=== PATIENT | male | born 1940 | race African-American/Black ===

== ENCOUNTER 2019-02-12 08:33 | Inpatient (IN) ==
[2019-02-12] MEDS ORDERED: SODIUM CHLORIDE 0.9% 2,400 ML IV ONE (09:06)
[2019-02-12] MEDS ORDERED: SODIUM CHLORIDE 0.9% 1,000 ML IV STA (09:06)
[2019-02-12 09:30] LABS: ABG Base Excess -0.1 MMOL/L (-2.5-2.5); ABG HCO3 24.4 MMOL/L (20-26); ABG PCO2 62.1 MM HG (35-48); ABG PH 7.273 (7.35-7.45); ABG TCO2 25.3 MMOL/L (23-27); Allen Test Positive
[2019-02-12 09:45] LABS: Basophils % 0.4 % (0.0-0.8); Eosinophils % 0.3 % (0.00-10.9); Hematocrit 44.5 VOL% (42.0-52.0); Hemoglobin 13.9 GM/DL (14.0-18.0); Immature Granulocytes % 0.6 %; Immature Granulocytes Absolute 0.05 #; Lymphocytes # 0.5 10*3/uL (1.4-4.0); Lymphocytes % 6.2 % (21.2-54.2); Mean Corpuscular HGB Conc 31.2 GM/DL (32-36); Mean Corpuscular Volume 96.7 FL (87-102); Mean Platelet Volume 9.4 FL (9.6-12.0); Monocytes % 3.8 % (1.7-12.7); Neutrophils % 88.7 % (38.7-73.9); Platelet Count 240 T/CUMM (130-400); Red Cell Distribution Width 14.5 % (9.3-17.3); White Blood Count 7.9 T/CUMM (4-12)
[2019-02-12 09:49] LABS: Apearance,Urine CLEAR (Clear); Bacteria,Urine Occasional /HPF (Few); Bilirubin,Urine Negative (Negative); Blood, Urine Negative (Negative); Glucose,Urine (UA) Negative (Negative); Ketones,Urine Negative (Negative); Mucus,Urine Occasional /LPF (Occasional); Nitrite,Urine Negative (Negative); Protein,Urine Negative; RBC,Urine 3 /HPF (0-4); Urine Color Yellow (Yellow); Urine Specific Gravity 1.011 (1.001-1.035); Urine Urobilinogen < 2.0 EU/DL (0.2-1.0); WBC,Urine <1 /HPF (0-6)
[2019-02-12 09:53] LABS: PT Patient Result 10.4 SECS
[2019-02-12 10:08] LABS: Albumin 3.5 G/DL (3.4-5.0); Bilirubin,Total 0.9 MG/DL (0.2-1.0); Osmolality,Calculated 259.7 MOS/KG (273-304); Total Protein 7.5 G/DL (6.4-8.3)
[2019-02-12] MEDS ORDERED: GENTAMICIN INJ 120 MG in SODIUM CHLORIDE 0.9% 100 ML IV STA (10:08)
[2019-02-12] MEDS ORDERED: CLINDAMYCIN INJ 600 MG in PREMIX 1 EACH IV STA (10:08)
[2019-02-12] MEDS ORDERED: MAGNESIUM SULF RIDER 2 GM in PREMIX 1 EACH IV PRN (12:58)
[2019-02-12] MEDS ORDERED: POTASSIUM CHLORIDE RIDER 10 MEQ in PREMIX 1 EACH IV PRN (12:58)
[2019-02-12] MEDS ORDERED: MAGNESIUM SULF RIDER 4 GM in PREMIX 1 EACH IV PRN (12:58)
[2019-02-12] MEDS ORDERED: ALBUTEROL 2.5 MG/3 ML NEB RESP TX PRN (12:58)
[2019-02-12] MEDS ORDERED: ACETAMINOPHEN 325 MG TABLET PO PRN (13:06)
[2019-02-12] MEDS ORDERED: MORPHINE 4 MG/1 ML VIAL IV PRN (13:06)
[2019-02-12] MEDS ORDERED: LORazepam 2 MG/1 ML VIAL IV PRN (13:08)
[2019-02-12] MEDS: ALBUTEROL/IPRATROPIUM 3 ML NEB RESP TX SCH ×2 (13:29→20:44)
[2019-02-12] MEDS: LEVOFLOXACIN INJ 750 MG in PREMIX 1 EACH IV SCH (13:45)
[2019-02-12] MEDS: DEXTROSE 5% NACL 0.9% 1,000 ML IV SCH (13:45)
[2019-02-12] MEDS: HEPARIN 5,000 UNIT/1 ML VIAL SUBCUT SCH ×2 (13:48→22:41)
[2019-02-12] MEDS: METOPROLOL TARTRATE 5 MG/5 ML VIAL IV SCH (17:41)
[2019-02-13] MEDS: ALBUTEROL/IPRATROPIUM 3 ML NEB RESP TX SCH ×4 (00:30→19:21)
[2019-02-13] MEDS: METOPROLOL TARTRATE 5 MG/5 ML VIAL IV SCH ×4 (02:36→17:35)
[2019-02-13 05:13] LABS: Basophils % 0.2 % (0.0-0.8); Eosinophils % 0.1 % (0.00-10.9); Hematocrit 36.9 VOL% (42.0-52.0); Hemoglobin 11.5 GM/DL (14.0-18.0); Immature Granulocytes % 0.6 %; Immature Granulocytes Absolute 0.08 #; Lymphocytes # 0.6 10*3/uL (1.4-4.0); Lymphocytes % 4.6 % (21.2-54.2); Mean Corpuscular HGB Conc 31.2 GM/DL (32-36); Mean Corpuscular Volume 96.3 FL (87-102); Mean Platelet Volume 9.3 FL (9.6-12.0); Monocytes % 2.1 % (1.7-12.7); Neutrophils % 92.4 % (38.7-73.9); Platelet Count 228 T/CUMM (130-400); Red Blood Count 3.83 MC/CUMM (3.8-5.5); Red Cell Distribution Width 14.6 % (9.3-17.3); White Blood Count 13.2 T/CUMM (4-12)
[2019-02-13 05:29] LABS: Calcium 8.9 MG/DL (8.5-10.1); Osmolality,Calculated 262.7 MOS/KG (273-304)
[2019-02-13 05:35] LABS: Bilirubin,Total 1.6 MG/DL (0.2-1.0); Calcium 8.6 MG/DL (8.5-10.1); Osmolality,Calculated 264.5 MOS/KG (273-304); Total Protein 6.5 G/DL (6.4-8.3)
[2019-02-13 05:44] LABS: Anisocytosis Slight; Lymphocytes 5 % (20-55); Platelet Estimate Adequate; Segmented Neutrophils 91 % (50-85); Total Cells Counted 100
[2019-02-13] MEDS: HEPARIN 5,000 UNIT/1 ML VIAL SUBCUT SCH ×3 (06:10→22:30)
[2019-02-13] MEDS ORDERED: CLINDAMYCIN INJ 600 MG in PREMIX 1 EACH IV SCH (09:30)
[2019-02-13] MEDS ORDERED: DEXTROSE 50% 25 GM/50 ML VIAL IV PRN (10:05)
[2019-02-13] MEDS ORDERED: GLUCAGON 1 MG VIAL IM PRN (10:05)
[2019-02-13] MEDS: methylPREDNISolone SOD SUC 40 MG/1 ML VIAL IV SCH ×2 (10:21→17:35)
[2019-02-13] MEDS: INSULIN REGULAR 100 UNIT/ML SUBCUT SCH ×2 (11:16→17:27)
[2019-02-13] MEDS ORDERED: ACETAMINOPHEN 650 MG SUPP RECTAL PRN (12:03)
[2019-02-13] MEDS: LEVOFLOXACIN INJ 750 MG in PREMIX 1 EACH IV SCH (12:20)
[2019-02-13] MEDS: DEXTROSE 5% NACL 0.9% 1,000 ML IV SCH (12:21)
[2019-02-13] MEDS ORDERED: SODIUM CHLORIDE 0.9% 1,000 ML IV ONE (14:34)
[2019-02-13] MEDS: MEROPENEM 500 MG in SYRINGE 1 EACH IV SCH ×2 (15:00→21:58)
[2019-02-13] MEDS: VANCOMYCIN INJ 1,250 MG in SODIUM CHLORIDE 0.9% 250 ML IV SCH (17:26)
[2019-02-13] MEDS ORDERED: ACETAMINOPHEN 325 MG/10.15 ML UDCUP PO PRN (20:00)
[2019-02-13] MEDS: ACETAMINOPHEN 325 MG/10.15 ML UDCUP PO SCH (21:53)
[2019-02-14] MEDS: METOPROLOL TARTRATE 5 MG/5 ML VIAL IV SCH ×5 (00:09→23:57)
[2019-02-14] MEDS: INSULIN REGULAR 100 UNIT/ML SUBCUT SCH ×4 (00:12→18:40)
[2019-02-14] MEDS: ALBUTEROL/IPRATROPIUM 3 ML NEB RESP TX SCH ×4 (00:30→19:23)
[2019-02-14] MEDS: methylPREDNISolone SOD SUC 40 MG/1 ML VIAL IV SCH ×3 (02:14→17:57)
[2019-02-14] MEDS: MEROPENEM 500 MG in SYRINGE 1 EACH IV SCH ×4 (02:17→22:02)
[2019-02-14] MEDS: VANCOMYCIN INJ 1,250 MG in SODIUM CHLORIDE 0.9% 250 ML IV SCH ×2 (03:38→17:56)
[2019-02-14] MEDS: ACETAMINOPHEN 325 MG/10.15 ML UDCUP PO SCH ×3 (05:39→22:05)
[2019-02-14] MEDS: HEPARIN 5,000 UNIT/1 ML VIAL SUBCUT SCH (05:46)
[2019-02-14 06:16] LABS: Albumin 2.8 G/DL (3.4-5.0); Bilirubin,Total 2.9 MG/DL (0.2-1.0); Calcium 8.4 MG/DL (8.5-10.1); Osmolality,Calculated 269.4 MOS/KG (273-304); Total Protein 6.1 G/DL (6.4-8.3)
[2019-02-14 06:17] LABS: Calcium 8.4 MG/DL (8.5-10.1); Osmolality,Calculated 269.4 MOS/KG (273-304); Prealbumin 13.5 MG/DL (20-40)
[2019-02-14 07:50] LABS: Hematocrit 34.3 VOL% (42.0-52.0); Hemoglobin 10.7 GM/DL (14.0-18.0); Immature Granulocytes % 0.7 %; Immature Granulocytes Absolute 0.07 #; Lymphocytes # 0.8 10*3/uL (1.4-4.0); Lymphocytes % 7.6 % (21.2-54.2); Mean Corpuscular HGB Conc 31.2 GM/DL (32-36); Mean Corpuscular Volume 97.4 FL (87-102); Mean Platelet Volume 10.6 FL (9.6-12.0); Neutrophils % 86.7 % (38.7-73.9); Platelet Count 218 T/CUMM (130-400); Red Blood Count 3.52 MC/CUMM (3.8-5.5); Red Cell Distribution Width 14.7 % (9.3-17.3); White Blood Count 9.9 T/CUMM (4-12)
[2019-02-14] MEDS: LANSOPRAZOLE ODT 30 MG TABLET PO SCH (09:42)
[2019-02-14] MEDS: DEXTROSE 5% NACL 0.9% 1,000 ML IV SCH (09:48)
[2019-02-14] MEDS: LEVOFLOXACIN INJ 750 MG in PREMIX 1 EACH IV SCH (13:12)
[2019-02-15] MEDS: INSULIN REGULAR 100 UNIT/ML SUBCUT SCH ×4 (00:10→18:17)
[2019-02-15] MEDS: ALBUTEROL/IPRATROPIUM 3 ML NEB RESP TX SCH ×4 (00:32→18:54)
[2019-02-15] MEDS: methylPREDNISolone SOD SUC 40 MG/1 ML VIAL IV SCH ×3 (03:34→18:21)
[2019-02-15] MEDS: MEROPENEM 500 MG in SYRINGE 1 EACH IV SCH ×4 (03:37→21:39)
[2019-02-15] MEDS: VANCOMYCIN INJ 1,250 MG in SODIUM CHLORIDE 0.9% 250 ML IV SCH ×2 (04:38→16:47)
[2019-02-15] MEDS: ACETAMINOPHEN 325 MG/10.15 ML UDCUP PO SCH ×3 (04:51→21:39)
[2019-02-15] MEDS: METOPROLOL TARTRATE 5 MG/5 ML VIAL IV SCH ×3 (06:23→18:21)
[2019-02-15 06:38] LABS: Albumin 2.5 G/DL (3.4-5.0); Bilirubin,Total 1.2 MG/DL (0.2-1.0); Calcium 8.3 MG/DL (8.5-10.1); Osmolality,Calculated 275.1 MOS/KG (273-304); Total Protein 5.6 G/DL (6.4-8.3)
[2019-02-15 06:39] LABS: Albumin 2.6 G/DL (3.4-5.0); Bilirubin,Direct 0.33 MG/DL (0.0-0.20); Bilirubin,Indirect 1.4 MG/DL (0.0-1.0); Bilirubin,Total 1.7 MG/DL (0.2-1.0); Total Protein 5.6 G/DL (6.4-8.3)
[2019-02-15] MEDS: LANSOPRAZOLE ODT 30 MG TABLET PO SCH (08:56)
[2019-02-15] MEDS: LEVOFLOXACIN INJ 750 MG in PREMIX 1 EACH IV SCH (13:15)
[2019-02-15] MEDS: DEXTROSE 5% NACL 0.9% 1,000 ML IV SCH (13:23)
[2019-02-16] MEDS: METOPROLOL TARTRATE 5 MG/5 ML VIAL IV SCH ×4 (00:21→18:13)
[2019-02-16] MEDS: ALBUTEROL/IPRATROPIUM 3 ML NEB RESP TX SCH ×4 (00:32→19:34)
[2019-02-16] MEDS: INSULIN REGULAR 100 UNIT/ML SUBCUT SCH ×4 (01:38→18:08)
[2019-02-16] MEDS: methylPREDNISolone SOD SUC 40 MG/1 ML VIAL IV SCH ×3 (02:49→18:13)
[2019-02-16] MEDS: MEROPENEM 500 MG in SYRINGE 1 EACH IV SCH ×4 (02:50→22:10)
[2019-02-16] MEDS: VANCOMYCIN INJ 1,250 MG in SODIUM CHLORIDE 0.9% 250 ML IV SCH ×2 (04:18→15:59)
[2019-02-16] MEDS: ACETAMINOPHEN 325 MG/10.15 ML UDCUP PO SCH ×3 (05:40→22:08)
[2019-02-16 06:01] LABS: Hematocrit 33.1 VOL% (42.0-52.0); Hemoglobin 10.5 GM/DL (14.0-18.0); Immature Granulocytes % 0.9 %; Immature Granulocytes Absolute 0.08 #; Lymphocytes # 0.5 10*3/uL (1.4-4.0); Mean Corpuscular HGB Conc 31.7 GM/DL (32-36); Mean Corpuscular Volume 95.1 FL (87-102); Mean Platelet Volume 10.3 FL (9.6-12.0); Monocytes % 6.1 % (1.7-12.7); NRBC # 0.03 10*3/uL; Platelet Count 240 T/CUMM (130-400); Red Blood Count 3.48 MC/CUMM (3.8-5.5); Red Cell Distribution Width 14.4 % (9.3-17.3); White Blood Count 8.5 T/CUMM (4-12)
[2019-02-16 06:23] LABS: Albumin 2.2 G/DL (3.4-5.0); Bilirubin,Total 1.6 MG/DL (0.2-1.0); Calcium 8.2 MG/DL (8.5-10.1); Osmolality,Calculated 272.1 MOS/KG (273-304); Total Protein 5.2 G/DL (6.4-8.3)
[2019-02-16] MEDS: LANSOPRAZOLE ODT 30 MG TABLET PO SCH (09:21)
[2019-02-16 10:15] LABS: HIV Antigen/Antibody Result Nonreactive (Nonreactive); Hepatitis B Core IgM Quant < 0.05 Index; Hepatitis B Surface Ag Result Negative (Negative); Hepatitis C Virus Ab Quant 0.07 Index; Hepatitis C Virus Ab Result Negative (Negative)
[2019-02-16] MEDS: LEVOFLOXACIN INJ 750 MG in PREMIX 1 EACH IV SCH (13:18)
[2019-02-17] MEDS: ALBUTEROL/IPRATROPIUM 3 ML NEB RESP TX SCH ×4 (01:10→19:10)
[2019-02-17] MEDS: METOPROLOL TARTRATE 5 MG/5 ML VIAL IV SCH ×4 (01:34→17:11)
[2019-02-17] MEDS: DEXTROSE 5% NACL 0.9% 1,000 ML IV SCH ×3 (01:36→18:20)
[2019-02-17] MEDS: methylPREDNISolone SOD SUC 40 MG/1 ML VIAL IV SCH ×3 (01:38→17:11)
[2019-02-17] MEDS: INSULIN REGULAR 100 UNIT/ML SUBCUT SCH ×4 (01:42→17:12)
[2019-02-17] MEDS: MEROPENEM 500 MG in SYRINGE 1 EACH IV SCH ×4 (02:56→21:19)
[2019-02-17] MEDS: VANCOMYCIN INJ 1,250 MG in SODIUM CHLORIDE 0.9% 250 ML IV SCH (04:17)
[2019-02-17 05:56] LABS: Calcium 8.5 MG/DL (8.5-10.1); Osmolality,Calculated 273.1 MOS/KG (273-304)
[2019-02-17] MEDS: ACETAMINOPHEN 325 MG/10.15 ML UDCUP PO SCH ×3 (06:17→21:18)
[2019-02-17] MEDS ORDERED: SODIUM PHOSPHATE INJ 30 MMOL in SODIUM CHLORIDE 0.9% 250 ML IV ONE (07:08)
[2019-02-17] MEDS: LANSOPRAZOLE ODT 30 MG TABLET PO SCH (09:41)
[2019-02-17] MEDS: levETIRAcetam 500 MG TABLET PO SCH (21:18)
[2019-02-18] MEDS: INSULIN REGULAR 100 UNIT/ML SUBCUT SCH ×3 (00:01→12:10)
[2019-02-18] MEDS: METOPROLOL TARTRATE 5 MG/5 ML VIAL IV SCH ×3 (00:01→12:10)
[2019-02-18] MEDS: ALBUTEROL/IPRATROPIUM 3 ML NEB RESP TX SCH ×2 (00:30→07:32)
[2019-02-18] MEDS: methylPREDNISolone SOD SUC 40 MG/1 ML VIAL IV SCH ×2 (01:23→09:09)
[2019-02-18] MEDS: MEROPENEM 500 MG in SYRINGE 1 EACH IV SCH ×2 (01:29→09:09)
[2019-02-18] MEDS: ACETAMINOPHEN 325 MG/10.15 ML UDCUP PO SCH ×2 (05:52→12:10)
[2019-02-18] MEDS: DEXTROSE 5% NACL 0.9% 1,000 ML IV SCH (07:14)
[2019-02-18] MEDS: LANSOPRAZOLE ODT 30 MG TABLET PO SCH (09:09)
[2019-02-18] MEDS: levETIRAcetam 500 MG TABLET PO SCH (09:10)
[2019-02-18 11:27] VITALS: BP 135/84
== END 2019-02-18 13:10 | disposition hospice, inpatient (51) | DRG 177 ==
LOC: EDBD → EDUNIT# → N.ED 08:33 → N.EDINP 11:09 → N.5E 13:09
PROVIDERS: ADMIT Internal Medicine; ATTEND Internal Medicine